=== PATIENT | female | born 1990 | race African-American/Black ===

== ENCOUNTER 2019-11-05 23:25 | Emergency (ER) | payer OTHER ==
[~2019-11-05] VITALS: Ht 157.5 cm; Wt 58.1 kg
[2019-11-05] MEDS ORDERED: ALLEGRA-D 24 H1 EACH PO (23:30)
[2019-11-05 23:57] LABS: ABSOLUTE NEUTROPHILS 5.1 thou/uL (1.4-8.2); BASOPHILS 0.3 % (0.0-2.0); EOSINOPHILS 1.7 % (0.0-3.0); HEMATOCRIT 39.4 % (37.0-47.0); HEMOGLOBIN 12.4 gm/dL (12.0-15.0); LYMPHOCYTES 29.4 % (24.0-44.0); MCH 22.6 pg (26.0-34.0); MCHC 31.6 g/dL (28.0-37.0); MCV 71.4 fL (80.0-100.0); MONOCYTES 11.8 % (1.0-8.0); PLATELET COUNT 200 thou/uL (150-400); POLYS 56.8 % (36.0-66.0); RBC 5.52 mil/uL (4.20-5.00); RDW 14.2 % (10.5-14.5)
[2019-11-06 00:18] LABS: CALCIUM 8.6 mg/dL (8.5-10.1); CREATININE 0.8 mg/dL (0.6-1.0); POTASSIUM 3.4 mmol/L (3.5-5.1)
[2019-11-06 00:24] LABS: ALBUMIN 4.1 g/dL (3.4-5.0); TOTAL BILIRUBIN 0.7 mg/dL (<0.1-1.0); TOTAL PROTEIN 7.7 g/dL (6.4-8.2)
[2019-11-06] MEDS ORDERED: PROTONIX40 M2 PO (00:32)
[2019-11-06 00:48] VITALS: BP 125/64
== END 2019-11-06 00:50 | disposition home or self-care (01) ==
LOC: ER 23:25
PROVIDERS: Emergency Medicine
DX: R10.13 Epigastric pain (principal); R11.0 Nausea; Z79.899 Other long term (current) drug therapy